=== PATIENT | female | born 1985 | race Caucasian/White ===

== ENCOUNTER → 2018-08-20 18:14 | Outpatient (CLI) | payer OTHER, SELFPAY ==
[2018-08-20 20:31] LABS: Chlamydia Trachomatis by PCR Negative (Negative); Neisserai gonorrhoeae by PCR Negative (Negative); Probe Check PASS; Sample Adequacy Control PASS; Specimen Processing Control PASS
== END ==
PROVIDERS: Family Provider Family Medicine; PCP Family Medicine; Referring Provider Obstetrics & Gynecology; Visit Provider Obstetrics & Gynecology
DX: Z11.3 Encounter for screening for infections with a predominantly sexual mode of transmission (principal)
CPT/HCPCS: 87491; 87591

== ENCOUNTER → 2018-12-10 18:45 | Outpatient (CLI) | payer OTHER, SELFPAY ==
[2018-12-14 13:13] LABS: HPV Reflexed? NOT INDICATED
== END ==
PROVIDERS: Family Provider Family Medicine; PCP Family Medicine; Referring Provider Obstetrics & Gynecology; Visit Provider Obstetrics & Gynecology
DX: Z12.4 Encounter for screening for malignant neoplasm of cervix (principal)
CPT/HCPCS: 88175; G0145

== ENCOUNTER → 2019-08-01 | Outpatient (CLI) | payer OTHER, SELFPAY ==
[2019-08-01 17:53] LABS: Chlamydia Trachomatis by PCR Negative (Negative); Neisserai gonorrhoeae by PCR Negative (Negative); Probe Check PASS; Sample Adequacy Control PASS; Specimen Processing Control PASS
== END | disposition home or self-care (01) ==
LOC: LABSPEC 15:57
PROVIDERS: Visit Provider Obstetrics & Gynecology
DX: Z11.3 Encounter for screening for infections with a predominantly sexual mode of transmission (principal)
CPT/HCPCS: 87491; 87591

== ENCOUNTER → 2019-08-06 | Outpatient (CLI) | payer OTHER, SELFPAY ==
--- NOTE | 2019-08-06 14:06 | RAD_ITS ---
STUDY: X-RAY - RIGHT KNEE REASON FOR EXAM: Female, 34 years old. Right knee pain. TECHNIQUE: 4 view(s) of the knee. COMPARISON: None. FINDINGS: Normal visualized distal femur. Normal visualized proximal tibia and fibula. Normal proximal tibiofibular articulation. There is no demonstrated fracture. Normal medial femorotibial compartment. Normal lateral femorotibial compartment. Normal patellofemoral articulation. There is no demonstrated joint effusion. The soft tissue structures are unremarkable. RAD/Knee 4 or More Views IMPRESSION: Normal x-ray examination of the knee. Electronically Signed: Jostin Bolden MD at 16:58 EDT , Service support ,
== END | disposition home or self-care (01) ==
LOC: RAD.FUTURE 13:57
PROVIDERS: Referring Provider Family Medicine; Visit Provider Family Medicine
DX: M25.561 Pain in right knee (principal)
CPT/HCPCS: 73564

== ENCOUNTER → 2020-01-14 17:58 | Outpatient (CLI) | payer OTHER, SELFPAY ==
[2019-08-12 10:41] VITALS: BMI 20.8
[2020-01-19 20:07] LABS: HPV Genotype 16, Aptima Negative (Negative)
[2020-01-19 21:32] LABS: HPV APTIMA, High Risk Positive (Negative); HPV Genotype 18,45 Aptima Negative (Negative)
== END ==
PROVIDERS: Referring Provider Obstetrics & Gynecology; Visit Provider Obstetrics & Gynecology
DX: Z12.4 Encounter for screening for malignant neoplasm of cervix (principal)
CPT/HCPCS: 87624; 88175; G0145

== ENCOUNTER → 2020-01-26 15:46 | Outpatient (CLI) | payer OTHER, SELFPAY ==
[2019-08-12 10:41] VITALS: BMI 20.8
--- NOTE | 2020-01-26 | IMM_PTH ---
PATIENT: HI PACK LOC: [facility] U#:[id number] AGE/SX: 40/F ROOM: RE01/26/[address]: Dr. Sandy Jurado MD : 1985 BED: DIS: SPEC #: [id number] RECD: 01/28/20 14:50 STATUS: CAIT REQ #: [id number] HOLDEN: 01/26/20 00:[address]: Sandy Hernandez DEPT: IMMUNOHISTOCHEMISTRY RECD BY: Karo Royal ENTERED: 01/28/20 14:50 SP TYPE: IMMUNO OTHR DR: No Primary Care Phys Tissues: A - Uterine cervix, NOS Procedures: p16 (initial) KI-67 (add) PHYSICIAN & INSTITUTION [place] [id number] SPECIMEN INFORMATION: Tissue Source: A - Biopsy at 10 o'clock Clinical Info: HPV positive Specimen Number: [id number] CPT code: 58417, 41639 METHODOLOGY: Deparaffinized sections of prefer/formalin-fixed tissue or PAP/DQ stained slides are incubated with monoclonal/polyclonal antibodies/oligonucleotide probes. Localization is made via biotin free immunoperoxidase method. Appropriate controls are performed and reacted as expected. Results on target cell population are indicated in the following table: RESULTS: ANTIBODY / CLONE RESULT Block A P16 (E6H4) positive, focal weak and patchy Ki-67 (30-9) negative These tests were developed and their performance characteristics determined by [facility]. They may not have been cleared or approved by the U.S. Food and Drug Administration. The FDA has determined that such clearance or approval is not necessary. The above immunohistochemical/dualISH markers are ordered and reviewed by the Pathologist. INTERPRETATION: A. Cervix at 10 o'clock, biopsy: Focal changes suspicious for HPV cytopathic effects. SJ:rachelle 01/29/20
--- NOTE | 2020-01-26 14:45 | CER_PTH ---
PAT[facility]: HI PACK [facility] U[id number] AGE/SX: 40/F ROOM: RE01/26/[address]: Dr. Sandy Jurado MD : 1985 BED: DIS: SPEC #: [id number] RECD: 01/26/20 17:05 STATUS: CAIT HAMLIN #: [id number] HOLDEN: 01/26/20 14:[address]: Sandy Hernandez DEPT: SURGICAL PATHOLOGY RECD BY: Hector Erickson ENTERED: 01/27/20 07:50 SP TYPE: CERV OTHR DR: No Primary Care Phys Tissues: Uterine cervix, NOS Procedures: Surgery Specimen Level IV HEADER OPERATION: Colposcopy PRE-OP DIAGNOSIS: Pap within normal limits; HPV positive 01/14/20; R87.810 TISSUE SUBMITTED: A - Biopsy at 10 o'clock, B - [facility] MICROSCOPIC DIAGNOSIS A. Cervix, 10 o'clock, biopsy: Focal changes suspicious for HPV cytopathic effects. Acute and chronic inflammation and squamous metaplasia. See comment. B. ECC: Fragments of benign endocervical epithelium, blood and mucous, negative for dysplasia. TOLU:rachelle 01/28/20 COMMENT A. Immunohistochemistry ([id number]) for surrogate HPV marker (p16) supports the above diagnosis. This case has been reviewed in consultation with Dr. Power who concurs with the above diagnosis. MICROSCOPIC DESCRIPTION Slides are reviewed. GROSS DESCRIPTION A - Received in fixative is one container labeled with the patient's name and designated 10 o'clock biopsy. The specimen consists of one irregular fragment of light cochran soft tissue that measures 0.4 x 0.4 x 0.1 cm. The specimen is totally submitted in one cassette. B - Received in fixative is one container labeled with the patient's name and designated ECC. The specimen consists of a scant amount of soft tissue. The specimen is totally submitted for cell block preparation. / TOLU:rachelle 01/27/20 TC: CPT: 47080 x2
== END ==
PROVIDERS: Visit Provider Obstetrics & Gynecology
DX: R87.810 Cervical high risk human papillomavirus (HPV) DNA test positive (principal)
CPT/HCPCS: 88305; 88341; 88342

== ENCOUNTER → 2020-07-20 16:42 | Outpatient (CLI) | payer OTHER, SELFPAY ==
--- NOTE | 2020-07-20 | ECC_PTH ---
PATIENT: HI PACK LOC: [facility] U#:[id number] AGE/SX: 40/F ROOM: RE07/20/[address]: Dr. Lakia Smith MD : 1985 BED: DIS: SPEC #: [id number] RECD: 07/20/20 16:14 STATUS: CAIT YAKELIN #: [id number] HOLDEN: 07/20/20 00:[address]: Lakia Smith DEPT: SURGICAL PATHOLOGY RECD BY: Daija Doyle ENTERED: 07/21/20 13:19 SP TYPE: ECC LUDY DR: Dr. Christal Gutierrez, DO Tissues: Endocervical Procedures: Surgery Specimen Level IV HEADER OPERATION: Colposcopy PRE-OP DIAGNOSIS: HPV positive TISSUE SUBMITTED: ECC MICROSCOPIC DIAGNOSIS ECC: Fragments of benign endocervical epithelium, negative for dysplasia. SJ:rachelle 07/22/20 MICROSCOPIC DESCRIPTION Slides are reviewed. GROSS DESCRIPTION Received in fixative is one container labeled with the patient's name and designated ECC. The specimen consists of a scant amount of soft tissue. The specimen is totally submitted for cell block preparation. / AM:rachelle 07/21/20 TC:4 CPT: 55064
[2020-07-20 09:32] VITALS: BMI 22.0
== END ==
PROVIDERS: PCP Family Medicine; Referring Provider Obstetrics & Gynecology; Visit Provider Obstetrics & Gynecology
DX: A63.0 Anogenital (venereal) warts (principal)
CPT/HCPCS: 88305

== ENCOUNTER → 2020-09-27 15:48 | Outpatient (CLI) | payer OTHER, SELFPAY ==
[2020-07-20 09:32] VITALS: BMI 22.0
--- NOTE | 2020-09-27 16:07 | RAD_ITS ---
ACR Level 3 findings have been noted. An addendum which confirms receipt of the report will follow. HISTORY: Pain proximal end of great toe after tripping while running this past weekend. COMPARISON: None FINDINGS: # of images incl. paperwork: 3 XR Toes Min 2 Views: Right BONE AND JOINTS: Suspect subtle fracture at the lateral base distal phalanx great toe There is a foci of sclerosis seen within the distal one third of the distal phalanx great toe. This may be secondary to prior trauma. SOFT TISSUES: Unremarkable. No radiopaque foreign body. RAD/Toe(s) Min 2 Views IMPRESSION: Subtle fracture lateral base distal phalanx right great toe. Sclerosis seen at the distal one third of the great toe. This may be secondary to prior trauma this may also be secondary to bone island however this appears more compatible with focal cortical thinning seen on the lateral view. at 2331 Reported and signed by: Sondra Joy DO Electronically Signed: Sondra Joy DO at 23:30 EST Tel , Service support ,
== END ==
PROVIDERS: PCP Family Medicine; Referring Provider Family Medicine; Visit Provider Family Medicine
DX: M79.674 Pain in right toe(s) (principal)
CPT/HCPCS: 73660

== ENCOUNTER → 2021-08-03 11:08 | Outpatient (CLI) | payer OTHER, SELFPAY ==
[2021-08-08 21:48] LABS: HPV APTIMA, High Risk Positive (Negative)
== END ==
PROVIDERS: PCP Family Medicine; Referring Provider Obstetrics & Gynecology; Visit Provider Obstetrics & Gynecology
DX: Z12.4 Encounter for screening for malignant neoplasm of cervix (principal)
CPT/HCPCS: 87624; 88175; G0145

== ENCOUNTER → 2021-08-18 13:26 | Outpatient (CLI) | payer OTHER, SELFPAY ==
--- NOTE | 2021-08-18 | IMM_PTH ---
PATIENT: HI PACK LOC: [facility] U#:[id number] AGE/SX: 40/F ROOM: RE08/18/[address]: Dr. Lakia Smith MD : 1985 BED: DIS: SPEC #: [id number] RECD: 08/22/21 10:32 STATUS: CAIT REMiki #: [id number] HOLDEN: 08/18/21 00:[address]: Lakia Smith DEPT: IMMUNOHISTOCHEMISTRY RECD BY: Karo Royal ENTERED: 08/22/21 10:33 SP TYPE: IMMUNO OTHR DR: Dr. Christal Gutierrez, DO Tissues: B - Uterine cervix, NOS Procedures: p16 (initial) KI-67 (add) PHYSICIAN & INSTITUTION [place] [address] SPECIMEN INFORMATION: Tissue Source: B ? Cervix at 2 and 7 o?clock Clinical Info: JAX, HPV positive Specimen Number: [id number] CPT code: 17676, 48190 METHODOLOGY: Deparaffinized sections of prefer/formalin-fixed tissue or PAP/DQ stained slides are incubated with monoclonal/polyclonal antibodies/oligonucleotide probes. Localization is made via biotin free immunoperoxidase method. Appropriate controls are performed and reacted as expected. Results on target cell population are indicated in the following table: RESULTS: ANTIBODY / CLONE RESULT Block B P16 (E6H4) positive, focal block staining Ki-67 (30-9) positive, moderate These tests were developed and their performance characteristics determined by [facility]. They may not have been cleared or approved by the U.S. Food and Drug Administration. The FDA has determined that such clearance or approval is not necessary. The above immunohistochemical/dualISH markers are ordered and reviewed by the Pathologist. INTERPRETATION: B. Cervix, 2 o?clock and 7 o?clock, biopsy: Mild and focal moderate squamous dysplasia. TOLU:rachelle 08/23/2021 Case has been reviewed in consultation with Dr. Power who concurs with the above diagnosis. IDC:AM
--- NOTE | 2021-08-18 11:00 | CER_PTH ---
PATIENT: HI PACK LOC: [facility] U#:[id number] AGE/SX: 40/F ROOM: RE08/18/[address]: Dr. Lakia Smith MD : 1985 BED: DIS: SPEC #: [id number] RECD: 08/18/21 13:20 STATUS: CAIT YAKELIN #: [id number] HOLDEN: 08/18/21 11:[address]: Lakia Smith DEPT: SURGICAL PATHOLOGY RECD BY: Destiny Kohler ENTERED: 08/19/21 11:54 SP TYPE: CERV OTHR DR: Dr. Christal Gutierrez, DO Tissues: A - Endocervical B - Uterine cervix, NOS Procedures: Surgery Specimen Level IV HEADER OPERATION: Colposcopy PRE-OP DIAGNOSIS: LGSIL HPV positive TISSUE SUBMITTED: A ? ECC, B ? 2 o?clock, 7 o?clock MICROSCOPIC DIAGNOSIS A. ECC: Scant fragments of benign endocervical epithelium, negative for dysplasia. B. Cervix, 2 o?clock and 7 o?clock, biopsy: Mild and focal moderate squamous dysplasia with HPV changes (HGSIL and GISELE I-II). Chronic inflammation. See comment. SJ:rachelle 08/22/2021 COMMENT B. Immunohistochemistry ([id number]) for surrogate HPV marker (p16) supports the above diagnosis. Please make reference to previous specimen ([id number]) cervix, 10 o?clock, biopsy with diagnosis of ?focal changes suspicious for HPV cytopathic effects.? Case has been reviewed in consultation with Dr. Power who concurs with the above diagnosis. IDC:AM MICROSCOPIC DESCRIPTION Slides are reviewed. GROSS DESCRIPTION A - Received in fixative is one container labeled with the patient's name and designated ECC. The specimen consists of scant fragments of cochran soft mucoid tissue that in aggregate measure 0.5 x 0.1 x 0.1 cm. The specimen is totally submitted in one cassette. B - Received in fixative is one container labeled with the patient's name and designated 2 o'clock, 7 o'clock. The specimen consists of two irregular fragments of cochran soft tissue that in aggregate measure 0.6 x 0.3 x 0.1 cm. The specimen is totally submitted in one cassette. / TOLU:rachelle 08/19/21 TC:5 CPT: 76420 x2
== END ==
PROVIDERS: PCP Family Medicine; Referring Provider Obstetrics & Gynecology; Visit Provider Obstetrics & Gynecology
DX: R87.622 Low grade squamous intraepithelial lesion on cytologic smear of vagina (LGSIL) (principal)
CPT/HCPCS: 88305; 88341; 88342

== ENCOUNTER 2021-11-01 12:25 | Day surgery (SDC) | payer OTHER, SELFPAY ==
[2021-11-01] VITALS (7 sets, daily range): BP systolic 89–115; BP diastolic 56–71; PULSE 45–59; RESP 14–16; TEMP 36.2–36.8; O2SAT 96–100; BMI 22.1
--- NOTE | 2021-11-01 | CER_PTH ---
PATIENT: HI PACK LOC: [facility] [place] U#:[id number] AGE/SX: 36/F ROOM: RE11/01/[address]: Dr. Zehra Hameed MD : 1985 BED: DIS: 11/01/2021 SPEC #: [id number] RECD: 11/01/21 15:53 STATUS: CAIT [place] #: [id number] HOLDEN: 11/01/21 00:[address]: Zehra Hameed DEPT: SURGICAL PATHOLOGY RECD BY: Marcelo Boyd ENTERED: 11/02/21 08:51 SP TYPE: CERV OTHR DR: Dr. Christal Gutierrez, DO Tissues: A - UTERINE CERVIX LEEP B - Endocervical Procedures: Surgery Specimen Level IV Surgery Specimen Level V HEADER OPERATION: LEEP cone PRE-OP DIAGNOSIS: GISELE II TISSUE SUBMITTED: A ? LEEAditi, B - ECC MICROSCOPIC DIAGNOSIS A. Cervix, LEEP conization: Focal mild squamous dysplasia. Squamous metaplasia and chronic inflammation. Margins of excision are free of dysplasia. B. Endocervix, curettings: Rare strips of benign superficial endocervix. No evidence of dysplasia. AM:rachelle 11/03/2021 COMMENT Reference is made to the patient's previous cervical biopsy ([id number]) in which mild and focal moderate squamous dysplasia with HPV change was identified. MICROSCOPIC DESCRIPTION Slides are reviewed. GROSS DESCRIPTION A - Received in fixative is one container labeled with the patient's name and designated LEEP. The specimen consists of four irregular fragments of glistening mucosa ranging in size from 1 to 2 cm. No mass lesions are identified. The fragments are inked, serially sectioned and totally submitted in four cassettes. B - Received in fixative is one container labeled with the patient's name and designated ECC. The specimen consists of multiple minute fragments of cochran tissue that in aggregate measure 0.5 x 0.5 x <0.1 cm. The specimen is totally submitted in one cassette. / AM:rachelle 11/02/21 TC:3 CPT: 52997, 39969
[2021-11-01 12:53] LABS: Internal QC Validated? YES +Cl - CLEAR BKGD
[2021-11-01 12:56] LABS: Pregnancy, Urine Negative Negative
[2021-11-01 13:11] LABS: Absolute Lymphocyte Count 1.75 X10^3/uL (0.83-4.51); Absolute Neutrophil Count 2.8 X10^3/uL (2.0-7.7); Basophil# 0.02 X10^3/uL; Basophil% 0.4 % (0-1); Eosinophil# 0.05 X10^3/uL; Hematocrit 36.3 % (37-47); Hemoglobin 12.6 g/dL (12.0-15.0); Lymphocyte # 1.75 X10^3/ul (0.83-4.51); Lymphocyte % 34.4 % (19-41); Mean Corp Hgb Conc 34.7 g/dL (32-36); Mean Corpuscular Volume 92.1 fL (81-99); Mean Platelet Vol. 8.5 fl (6.2-12.0); Monocyte# 0.42 X10^3/uL; Monocyte% 8.3 % (0-10); NRBC Flagged by Analyzer 0 % (0-5); Neutrophil # 2.84 X10^3/uL (2.7-7.7); Neutrophil % 55.7 % (47-70); Platelet Count 224 K/mm3 (150-450); RBC Distribution Width CV 11.5 % (11.6-14.6); Red Blood Count 3.94 M/mm3 (4.2-5.4); White Blood Count 5.1 K/mm3 (4.4-11.0)
[2021-11-01] MEDS: Lactated Ringers 1,000 ML 15 ML IV (13:16)
--- NOTE | 2021-11-01 13:48 | OP.PCM_ITS ---
Problems Associated Problem List Diagnoses (1) GISELE II (cervical intraepithelial neoplasia II): Report of Operation Date of Procedure: 11/01/21 Pre-Operative Diagnosis: see problem list Post-Operative Diagnosis: same Surgery/Procedure Performed:: LEEP procedure Description of Surgical Findings:: grossly nl cervix clinical research physician: None Type of Anesthesia: General and Local Special Medications: monsels paste Specimen's removed: cervix ecc Drains: none Estimated Blood Loss (mL): 50 Fluids Replaced: crystalloid Description of Procedure: Paracervical block was placed with 1% lidocaine and using a loop electrode the outer part of the cervix was removed including the squamocolumnar junction. Endocervical curettings were taken and the base of the cervix was cauterized around the borders and the base to obtain excellent hemostasis. Monsel's paste was placed and patient was awoken and taken recovery in stable condition. iud strings still intact at the end of the procedure. ecc and cervix sent Grafts/Implants Used: none Complications none Admit VTE Documentation VTE Present on Admission: No VTE Mechan Device Prophylaxis: SCD's
--- NOTE | 2021-11-01 13:48 | HP.PCM_ITS ---
History and Physical Date of Admission: 11/01/21 [facility] [id number] [place] [address] [phone] OFFICE VISITDate of Service: 10/24/21 MR#:[id number]: HI PACKLisa #:[id number]:1985 Provider:Noelle Miles/Sex: 36/F Location:[facility] CAMPUStatus:Signed Intake Vital Signs 10/24/21 13:02 Height 5 ft 2 in Weight: 125 lb BMI 22.8 BP 102/60 Intake Visit Reasons: 2 wk LEEP Chief Complaint: pre op LEEP Presentation Team Member Required: No Is patient in pain?: No Allergies No Known Allergies Allergy (Verified 09/15/21 11:18) Medications levonorgestrel 20 mcg/24 hours (7 yrs) 52 mg intrauterine device 1 device INTRA UTERINE ONCE 08/12/19 [History Confirmed 10/24/21] multivitamin with minerals 1 tab PO DAILY 08/03/21 [History Confirmed 10/24/21] Is last menstrual period known: No Post menopausal: No Patient : No : [facility] History Abnormal Pap smear of cervix Cervical high risk HPV (human papillomavirus) test positive History of breast abscess Low grade squamous intraepithelial lesion (LGSIL) Surgical History (Updated 10/24/21 @ 13:02 by Nancy Mckeon) H/O LEEP Status post colposcopy Family History Other Cancer Social History Smoking Status: Never smoker alcohol intake: current alcohol intake frequency: holidays/special occasions only substance use type: does not use what type of physical activity do you participate in: running frequency: 3-4 times per week seatbelt use: always do you feel safe at home: Yes additional social history: -[facility] RN HPI 2 wk LEEP Details: HI PACK is a 36 year old who presents for preop visit for LEEP. GISELE II Female Reproductive History Menopausal Symptoms: No night sweats Pregancy History 2 Elective abortions Hx Para 2 Spontaneous abortions Hx # Term Pregnancies Ectopic pregnancies Hx # Pregnancies Multiple births # of living children Past Pregnancies Del. Date Name GA/Weeks Outcome Route Bth Weight Gen Labor Lgth Anesthesia Del Locatn Provider FOB Unknown -2008 Unknown Tamir-2004 ROS Const Constitutional: Denies fatigue, night sweats, weight gain or weight loss ENT ENT: Reports system reviewed and no additional complaints, except as documented Cardio Card: Denies chest pain Resp Resp: Denies cough or dyspnea GI GI: Reports as per HPI; Denies abdominal pain, constipation, nausea or vomiting : Denies nipple discharge, urinary frequency, urinary incontinence, urinary hesitancy, urinary urgency, vaginal discharge, vaginal dryness, vaginal odor or vaginal pruritus Musc Musc: Denies arthralgias, back pain or muscle weakness Skin Skin/Breast: Denies alopecia, change in hair, dry skin, breast mass, breast pain, breast skin changes or nipple discharge Neuro Neuro: Reports system reviewed and no additional complaints, except as documented Psych Psych: Reports system reviewed and no additional complaints, except as documented Endo Endo: Denies cold intolerance, excessive sweating, heat intolerance or polydipsia Jun/Lymph Hematologic/Lymphatic: Denies easy bleeding, Denies easy bruising and Denies lymphadenopathy Exam Const General: cooperative, healthy appearing, comfortable, no acute distress and well developed Orientation: alert [facility] Head: normal to inspection and normocephalic Ears: hearing grossly normal bilaterally and external ears normal Nose: external nose normal and nares normal Face and sinus: normal facial exam Neck Neck: normal visual inspection and no lymphadenopathy Thyroid: thyroid normal Chest Chest palpation & inspection: normal inspection of the chest Resp Effort & Inspection: normal respiratory effort Auscultation: clear to auscultation bilaterally Cardio Rate: regular rate Rhythm: regular rhythm Heart Sounds: S1 normal and S2 normal GI Inspection: normal to inspection and non-distended Palpation: soft and no hepatosplenomegaly Musc Other: gross motor intact no deficits, full bilateral strength Skin General: no rashes or lesions noted Neuro General: patient alert, patient awake, moves all extremities and no focal motor deficits Motor: muscle tone normal throughout Extrem General: normal to inspection and no pedal edema Psych Appearance: grossly normal Mental Status: mental status grossly normal Affect: normal affect Speech and Movement: speech and movement normal Coding Level of Care Code No Charge Diagnoses GISELE II (cervical intraepithelial neoplasia II) N87.1 Assessment and Plan Assessment and Plan (1) GISELE II (cervical intraepithelial neoplasia II): Status: Acute Comment: plan LEEP. has IUD present. Plan - Dr. Zehra Hameed MD: After discussing the patient's diagnosis and treatment plan options, patient wishes to proceed with surgical management. I have discussed with the patient the risks, benefits, and alternatives of the procedure which include but are not limited to risks of anesthesia, bleeding, infection, possible damage to bowel, bladder, or surrounding vasculature which could lead to additional surgery to evaluate any complications. Patient agrees to procedure and wishes to proceed. ACOG/uptodate references given for additional information regarding procedure. Plan Details Goals & Barriers: Goals Decrease pain Decrease spasm Barriers Long distance running UPDATE- I have seen the patient and performed any clinically relevant updates to the history and physical exam. Zehra Hameed MD
--- NOTE | 2021-11-01 13:49 | EX.PCM.DISCH ---
Discharge Instructions Procedure LEEP Diet Discharge Diet: No restrictions Activity Discharge Activity: Return to Normal Activity and May Not Drive (while taking narcotic pain medications.) May resume sexual activity in: 4 weeks (Nothing in the vagina for 4 weeks.) Dressing / Incision Call your doctor if you observe: Fever of 101 or Higher and Using more than 1 pad per hour Follow Up Care Please Follow Up With: Zehra Hameed MD When: Call [phone] for follow-up appointment. Test Results: Test results from this visit will be discussed in further detail at your follow-up appointment, if applicable. Discharge Plan Admission Primary Reason for Your Visit: leep Attending Provider: Zehra Hameed Primary Care Provider: Christal Gutierrez Discharge Orders/Prescriptions Prescriptions: No Action Mirena 20 mcg/24 hours (5 yrs) 52 mg intrauterine device 1 device intrauterine ONCE RF: 0 multivitamin with minerals [Hair,Skin and Nails] Tablet 1 tab PO DAILY RF: 0 Referrals / Follow Up: Christal Gutierrez DO [Primary Care Provider] - Disposition Disposition (needs filled in before D/C Order can be placed): Home, Self Care
[2021-11-01] MEDS: Lidocaine 1% (20 ml mdv) 20 ML Vial (14:25)
[2021-11-01] MEDS: FERRIC SUBSULFATE 8 GM SOLN (14:36)
== END 2021-11-01 16:40 | disposition home or self-care (01) ==
LOC: SDC 12:25 → AC 12:26
PROVIDERS: PCP Family Medicine; Referring Provider Obstetrics & Gynecology; Visit Provider Obstetrics & Gynecology
PROC: 0UBC7ZZ Excision of Cervix, Via Natural or Artificial Opening (ICD-10-PCS; CPT 57522; principal; 2021-11-01 13:55)
DX: N87.1 Moderate cervical dysplasia (principal); Z79.3 Long term (current) use of hormonal contraceptives; M99.02 Segmental and somatic dysfunction of thoracic region; M99.03 Segmental and somatic dysfunction of lumbar region; M99.05 Segmental and somatic dysfunction of pelvic region
CPT/HCPCS: 00940; 57522; 81025; 85025; 86850; 86900; 86901; 88305; 88307; J7120; J2405

== ENCOUNTER 2021-11-21 02:34 | Emergency (ER) | payer OTHER, SELFPAY ==
[2021-11-21 02:35] VITALS: BP 139/88; PULSE 78; RESP 16; TEMP 36.6; O2SAT 100; BMI 23.8
--- NOTE | 2021-11-21 02:52 | EDS_ITS ---
HPI HPI - Female History of Present Illness Chief Complaint: Vag Bleeding Detail of Chief Complaint: Vaginal bleeding since November 17 Informant: patient Pain Pain: Negative for Pelvic Pain, Vulvar Pain and Vaginal Pain Bleeding Issue: Positive for Vaginal bleeding and Passing clots; Negative for Passing tissue Onset: Days (Onset November 17) Context: Sudden Onset Timing: Continuous and Waxes and wanes Current Severity: Mild and - (Patient reports 1 pad per hour since last evening starting at 1800. She also reports passing golf ball sized to plum size clots) Vaginal Discharge Onset: Today Associated Symptoms Associated Symptoms: Negative for Dysuria, Frequency, Urgency and Hematuria Narrative Narrative: Patient is a 36-year-old woman with history of HPV, carcinoma in situ to, cervical intraepithelial neoplasm 2) who had an abnormal colposcopy that revealed moderate dysplasia from biopsy site at 7:00 and 2:00. She underwent LEEP procedure. She states she was doing well until bleeding started this past November 17. She contacted surgeon's office. She was instructed to call back on Sunday. She presents now because of abnormal bleeding of 1 pad per hour since last evening with passage of large clots. She gives up mild orthostatic symptoms. She does not believe she appears pale. She states she does not feel her normal self. She denies abdominal pain or pelvic pain. Prior similar symptoms: No Recent Illness/Hospitalization: Yes [facility] Medical History Abnormal Pap smear of cervix Alcohol use Cervical high risk HPV (human papillomavirus) test positive History of breast abscess Low grade squamous intraepithelial lesion (LGSIL) Non-smoker Wears contact lenses Home Medications levonorgestrel 20 mcg/24 hours (7 yrs) 52 mg intrauterine device 1 device INTRAUTERINE ONCE 08/12/19 [History Last Taken Unknown] multivitamin with minerals 1 tab PO DAILY 08/03/21 [History Last Taken Unknown] Allergy/AdvReac Type Severity Reaction Status Date / Time No Known Allergies Allergy Verified 11/21/21 02:37 Family History Other Cancer Surgical History H/O LEEP Status post colposcopy Social History (Updated 11/21/21 @ 02:[address] Jermaine Pearl MD) household members: children Smoking Status: Never smoker alcohol intake: current alcohol intake frequency: holidays/special occasions only substance use type: does not use what type of physical activity do you participate in: running frequency: 3-4 times per week seatbelt use: always do you feel safe at home: Yes additional social history: -[facility] RN ROS ROS ED Constitutional Constitutional ED: Denies fever(s) or subjective Cardiovascular Cardiovascular: Denies chest pain or palpitations Respiratory/Chest Respiratory/Chest: Denies cough, dyspnea or dyspnea on exertion Gastrointestinal Gastrointestinal: Denies abdominal pain, diarrhea, nausea or vomiting Genitourinary Genitourinary ED: Denies dysuria, hematuria or urinary frequency Musculoskeletal Musculoskeletal: Denies arthralgias or myalgias Integumentary Denies rash Neurologic Neurologic: Denies paresthesias or weakness Psychiatric Psychiatric: Reports other Details: Patient voices frustration. Endocrine Endocrinology: Denies polydipsia, polyphagia or polyuria Hematologic/Lymphatic Hematologic/Lymphatic: Denies easy bleeding or easy bruising EXAM Physical Exam Const Vital Signs: 11/21/21 02:35 11/21/21 03:00 Temperature 98 F Temperature Source Oral Pulse Rate 78 Pulse Rate [Lying] 58 L Pulse Rate [Sitting] 72 Pulse Rate [Standing] 79 Respiratory Rate 16 Blood Pressure 139/88 H Blood Pressure [Lying] 107/69 Blood Pressure [Sitting] 117/80 Blood Pressure [Standing] 117/93 H Blood Pressure Mean 105 Blood Pressure Mean [Lying] 81 Blood Pressure Mean [Sitting] 92 Blood Pressure Mean [Standing] 101 Pulse Ox 100 Positive well nourished and well developed General Appearance ED: well developed, NAD, pallor and other Patient appears possibly slightly pale compared to her normal skin complexion. HEENT Reports moist mucous membranes Negative for trauma or tenderness Eyes PERRL and EOMs intact bilaterally General Eye ED: Negative for pale conjunctiva or scleral icterus Neck no lymphadenopathy and supple Resp normal respiratory effort and clear to auscultation bilaterally Cardio regular rate and regular rhythm GI normal to inspection, nondistended, normoactive bowel sounds and soft to palpation no CVA tenderness Extremity normal to inspection General Extremety ED: Negative for edema General Extremity: Negative for edema Neuro oriented x3 and CN's II-XII intact bilaterally Sensorium / Orientation: alert Psych Psych Narrative: Apologetic. Slightly frustrated Skin no rashes or lesions noted and no wounds General Skin Exam: pallor; Negative for jaundice MDM MDM MDM Narrative Medical decision making narrative: Since she is bleeding and changing a pad every hour with significant size clot will obtain a H&H for baseline. Orthostatic vital signs. Once IV has been established and orthostatic vital si gns have been performed will perform pelvic exam to determine if there is a specific site of bleeding and to determine the amount of active bleeding. We will then contact surgeon, Dr. Zehra Hameed Spoke with Dr. Marcelo who is on-call for Dr. Zehra Hameed. She was informed the patient's history, recent surgical procedure and reason for presentation. Reviewed laboratory results and findings of pelvic exam. Plan Monsel solution to cervix and pack with Kerlix. She is to go to the office this morning. Patient was instructed to go to the office this morning after getting her children ready for school. She was instructed not to eat or drink anything in the event that this is not amenable to cauterization or suturing in the office and requires operative intervention. Monsel solution was applied to the cervix. The vagina was then packed with Kerlix. She tolerated the procedure. Plan is to discharge to home with [employer] follow-up later this morning. She feels comfortable driving herself home. Lab Data Labs: Laboratory Results - last 24 hr 11/21/21 02:53 WBC 6.0 RBC 3.70 L Hgb 11.8 L Hct 34.5 L MCV 93.2 MCH 31.9 MCHC 34.2 RDW Std Deviation 38.9 RDW Coeff of Kirstin 11.5 L Plt Count 285 MPV 8.4 Discharge Plan Triage Chief Complaint: Vag Bleeding ED Provider: Jermaine Pearl Dx/Rx/DC Orders Clinical Impression: Postoperative haemorrhage of vagina, Orthostatic dizziness Instructions: ED Post Op Wound Check, Bleeding Prescriptions: No Action Mirena 20 mcg/24 hours (5 yrs) 52 mg intrauterine device 1 device intrauterine ONCE RF: 0 multivitamin with minerals [Hair,Skin and Nails] Tablet 1 tab PO DAILY RF: 0 Primary Care Provider: Christal Gutierrez Referrals: Melly Jarrell DO [STAFF PHYSICIAN] - 11/21/21 Christal Gutierrez DO [Primary Care Provider] - Disposition Disposition: Home, Self Care
[2021-11-21 03:00] VITALS: BP 107/69; BP 117/80; BP 117/93; PULSE 58; PULSE 72; PULSE 79
[2021-11-21 03:04] LABS: Hematocrit 34.5 % (37-47); Hemoglobin 11.8 g/dL (12.0-15.0); Mean Corp Hgb Conc 34.2 g/dL (32-36); Mean Corpuscular Hgb 31.9 pg (27.0-32.0); Mean Corpuscular Volume 93.2 fL (81-99); Mean Platelet Vol. 8.4 fl (6.2-12.0); Platelet Count 285 K/mm3 (150-450); RBC Distribution Width CV 11.5 % (11.6-14.6); RBC Distribution Width SD 38.9 fl (35.1-43.9)
[2021-11-21] MEDS: FERRIC SUBSULFATE 8 GM SOLN TOPICAL (04:02)
== END 2021-11-21 04:04 | disposition home or self-care (01) ==
PROVIDERS: Emergency Provider Emergency Medicine; PCP Family Medicine; Visit Provider Emergency Medicine
DX: N99.821 Postprocedural hemorrhage of a genitourinary system organ or structure following other procedure (principal); R42 Dizziness and giddiness
CPT/HCPCS: 85027; 99284; A4216

== ENCOUNTER → 2022-03-31 | Outpatient (CLI) | payer OTHER, SELFPAY ==
--- NOTE | 2022-03-31 14:08 | US_ITS ---
STUDY: THYROID ULTRASOUND REASON FOR EXAM: Female, 36 years old. NODULE Technologist Notes Other, please give TIRADS with dictation please TECHNIQUE: Ultrasound evaluation of the thyroid was performed with real-time and static zuniga-scale imaging. COMPARISON: None. FINDINGS: RIGHT LOBE: The right lobe of the thyroid gland measures 5.1 x 1.6 cm. There is a homogeneous echotexture. There are 3 nodules. Nodule is 8 x 7 mm, 11 x 8 mm, and 15 x 15mm. The lesion is solid / cystic with regular margins and intra-nodular doppler flow. LEFT LOBE: The left lobe of the thyroid gland measures 4.6 x 1.7 cm. There is a homogeneous echotexture. There is a nodule. 20 x 11mm nodule . The lesion is solid with regular margins and intra-nodular doppler flow. ISTHMUS: The isthmus measures 1.8 mm. US/Thyroid IMPRESSION: There are RIGHT nodules. This nodule is mixed cystic and solid, hyperechoic or isoechoic, [id number], smoothly marginated and contains no echogenic foci. TI-RADS points: 2. TI-RADS category: TR2. This nodule is not suspicious and no FNA or follow-up is necessary. There are left nodules. This nodule is solid or almost completely solid, hyperechoic or isoechoic, [id number], smoothly marginated and contains no echogenic foci. TI-RADS points: 3. TI-RADS category: TR3. This nodule is mildly suspicious. Recommend follow-up thyroid ultrasounds at 1, 3 and 5 years. Electronically Signed: Timo Rice MD at 16:11 EDT ,
== END | disposition home or self-care (01) ==
LOC: OPUS 14:06
PROVIDERS: PCP Family Medicine; Referring Provider Family Medicine; Visit Provider Family Medicine
DX: E04.1 Nontoxic single thyroid nodule (principal)
CPT/HCPCS: 76536

== ENCOUNTER → 2022-09-20 | Outpatient (CLI) | payer OTHER, SELFPAY ==
--- NOTE | 2022-09-20 14:38 | US_ITS ---
STUDY: ULTRASOUND OF THE FEMALE PELVIS - COMPLETE REASON FOR EXAM: Female, 37 years old. IUD placement TECHNIQUE: Endovaginal. Transvaginal US was obtained to better visualized the ovaries. COMPARISON: None. FINDINGS: The uterus is anteverted and is in a midline position. The uterus measures 8.9 x 6.5 cm. Normal uterine cervix. The endometrium measures 3 mm in thickness, and is hyperechoic. There is no demonstrated endometrial mass. There is no demonstrated myometrial mass. I.U.D. - The patient does have an I.U.D. The right ovary is visualized. The right ovary measures 4.7 x 2 cm. There is no right ovarian cyst or ovarian mass. There is no visualized right adnexal mass or complex lesion. There is normal arterial and normal venous vascularity. The left ovary is visualized. The left ovary measures 2.8 x 3.2 cm. There is no left ovarian cyst or ovarian mass. There is no visualized left adnexal mass or complex lesion. There is normal arterial and normal venous vascularity. There is minimal fluid in the cul-de-sac. Unremarkable urinary bladder. US/Transvaginal Non- IMPRESSION: There is free fluid in the pelvis. This can be physiologic. Electronically Signed: Timo Rice MD at 20:59 EST ,
== END | disposition home or self-care (01) ==
LOC: US 14:36
PROVIDERS: PCP Family Medicine; Visit Provider Family Medicine
DX: R10.2 Pelvic and perineal pain (principal)
CPT/HCPCS: 76830

== ENCOUNTER → 2022-10-24 | Outpatient (CLI) | payer OTHER, SELFPAY ==
[2022-11-02 21:57] LABS: HPV APTIMA, High Risk Negative (Negative)
== END | disposition home or self-care (01) ==
LOC: LABSPEC 16:53
PROVIDERS: PCP Family Medicine; Visit Provider Obstetrics & Gynecology
DX: N87.1 Moderate cervical dysplasia (principal); B97.7 Papillomavirus as the cause of diseases classified elsewhere
CPT/HCPCS: 87624; 88175; G0145

== ENCOUNTER → 2023-04-11 | Outpatient (CLI) | payer OTHER, SELFPAY ==
--- NOTE | 2023-04-11 09:48 | US_ITS ---
STUDY: THYROID ULTRASOUND REASON FOR EXAM: Female, 37 years old. MULTINODULAR GOITER -- -- TIRADS please TECHNIQUE: Ultrasound evaluation of the thyroid was performed with real-time and static zuniga-scale imaging. COMPARISON: Comparison is made with prior examination dated March 31, 2022. FINDINGS: RIGHT LOBE: The right lobe of the thyroid gland is slightly enlarged measures 5.1 cm x 1.6 cm x 1.5 cm. There is a homogeneous echotexture. There is a 1.4 cm x 1.3 cm x 0.7 cm well-circumscribed hypoechoic solid nodule in the mid pole. Intranodular vascularity is seen. This is essentially unchanged. 2 subcentimeter hypoechoic nodules are seen in the superior pole. These are unchanged. There is also evidence of a 9 mm x 8 mm x 5 mm hypoechoic solid and cystic nodule in the lower pole. TI-RADS Category 2 LEFT LOBE: The left lobe of the thyroid gland measures 4.6 cm x 1.5 cm x 1.5 cm. There is a homogeneous echotexture. There is a 2.1 cm x 1.2 cm x 1 cm solid nodule in the upper pole. There is evidence of intranodular vascularity. This is unchanged. TI-RADS Category 3 ISTHMUS: The isthmus measures 1.4 mm. The regional lymph nodes are normal. US/Thyroid IMPRESSION: Essentially stable examination. Electronically Signed: Wade Noyola MD at 15:36 EDT ,
== END | disposition home or self-care (01) ==
LOC: US 09:47
PROVIDERS: PCP Family Medicine; Referring Provider Family Medicine; Visit Provider Family Medicine
DX: E04.2 Nontoxic multinodular goiter (principal)
CPT/HCPCS: 76536

== ENCOUNTER → 2023-09-11 | Outpatient (CLI) | payer OTHER, SELFPAY ==
--- NOTE | 2023-09-11 13:16 | US_ITS ---
STUDY: ULTRASOUND OF THE FEMALE PELVIS - COMPLETE REASON FOR EXAM: Female, 38 years old. PELVIC PAIN LMP: Unknown. TECHNIQUE: Transabdominal and Transvaginal TECHNICAL QUALITY: Adequate. COMPARISON: None. FINDINGS: The uterus is anteverted and is in a midline position. The uterus measures 8.8 cm x 5.3 cm x 4.7 cm. There is a Nabothian cyst of the cervix. The endometrium measures 3.9 mm in thickness, and is hyperechoic. There is no demonstrated endometrial mass. There is no demonstrated myometrial mass. I.U.D. - The patient does have an I.U.D. . The IUD is seen within the fundal portion of the uterus. The right ovary is visualized. The right ovary measures 4.4 cm x 3.9 cm x 1.8 cm. A dominant follicle is seen in the right ovary measuring 1.6 x 1.5 cm x 1.3 centimeter. There is no visualized right adnexal mass or complex lesion. There is normal arterial and normal venous vascularity. The left ovary is visualized. The left ovary measures 3 cm x 2.8 cm x 2.4 cm. Small follicles are seen. There is no visualized left adnexal mass or complex lesion. There is normal arterial and normal venous vascularity. There is no fluid in the cul-de-sac. The pre void volume of the bladder was 695 ml. US/Pelvic w/ Transvaginal IMPRESSION: IUD is seen within the endometrium. Dominant follicle in the right ovary measuring 1.6 x 1.5 cm x 1.3 cm. Electronically Signed: Wade Noyola MD at 15:18 EDT ,
== END | disposition home or self-care (01) ==
PROVIDERS: PCP Family Medicine; Referring Provider Family Medicine; Visit Provider Family Medicine
DX: R10.2 Pelvic and perineal pain (principal)
CPT/HCPCS: 76830; 76856

== ENCOUNTER → 2023-10-26 | Outpatient (CLI) | payer OTHER, SELFPAY ==
[2023-11-01 22:06] LABS: HPV APTIMA, High Risk Negative (Negative)
== END | disposition home or self-care (01) ==
PROVIDERS: PCP Family Medicine; Referring Provider Obstetrics & Gynecology; Visit Provider Obstetrics & Gynecology
DX: Z12.4 Encounter for screening for malignant neoplasm of cervix (principal)
CPT/HCPCS: 87624; 88175; G0145

== ENCOUNTER → 2024-02-06 | Outpatient (CLI) | payer OTHER, SELFPAY ==
[2024-02-06 08:22] LABS: Absolute Lymphocyte Count 1.49 X10^3/uL (0.83-4.51); Absolute Neutrophil Count 3.8 X10^3/uL (2.0-7.7); Basophil# 0.03 X10^3/uL; Basophil% 0.5 % (0-1); Eosinophil# 0.12 X10^3/uL; Eosinophils% 2.1 % (0-5); Hematocrit 38.8 % (37-47); Hemoglobin 13.3 g/dL (12.0-15.0); Lymphocyte # 1.49 X10^3/ul (0.83-4.51); Lymphocyte % 25.5 % (19-41); Mean Corp Hgb Conc 34.3 g/dL (32-36); Mean Corpuscular Hgb 32.2 pg (27.0-32.0); Mean Corpuscular Volume 93.9 fL (81-99); Mean Platelet Vol. 8.7 fl (6.2-12.0); Monocyte# 0.38 X10^3/uL; Monocyte% 6.5 % (0-10); NRBC Flagged by Analyzer 0 % (0-5); Neutrophil # 3.82 X10^3/uL (2.7-7.7); Neutrophil % 65.2 % (47-70); Platelet Count 244 K/mm3 (150-450); RBC Distribution Width CV 11.6 % (11.6-14.6); RBC Distribution Width SD 39.5 fl (35.1-43.9); Red Blood Count 4.13 M/mm3 (4.2-5.4); White Blood Count 5.9 K/mm3 (4.4-11.0)
[2024-02-06 09:14] LABS: ALB/GLOB Ratio 1.4 RATIO (0.9-2.4); AST(SGOT) 20 U/L (15-37); Alanine Aminotransfer ALT/SGPT 26 U/L (13-56); Albumin, Serum 3.9 g/dL (3.2-5.0); Alkaline Phosphatase 46 U/L (45-117); Anion Gap 4 (5-15); BUN 22 mg/dL (7-18); BUN/Creat Ratio 33.7 RATIO (10-20); Calcium,Total 8.4 mg/dL (8.5-10.1); Chloride 106 mmol/L (98-107); Cholesterol 159 mg/dL (200); Creatinine, Serum 0.65 mg/dL (0.55-1.02); EST Glomerular Filtration Rate 108 mL/min (>60); Est Glom Filt Rate - Afr Amer 131 mL/min (>60); Globulin 2.8 g/dL (2.2-4.2); Glucose 92 mg/dL (74-106); High Density Lipoprotein 69 mg/dL; Potassium 3.8 mmol/L (3.5-5.1); Protein, Total 6.7 g/dL (6.4-8.2); Sodium Level 138 mmol/L (136-145); Triglycerides 66 mg/dL; Very Low Density Lipoprotein 13 mg/dL (5-40)
== END | disposition home or self-care (01) ==
LOC: LAB 07:47
PROVIDERS: PCP Family Medicine; Visit Provider Family Medicine
DX: Z00.00 Encounter for general adult medical examination without abnormal findings (principal)
CPT/HCPCS: 36415; 80053; 80061; 85025

== ENCOUNTER → 2024-06-18 | Outpatient (CLI) | payer OTHER, SELFPAY ==
--- NOTE | 2024-06-18 11:25 | RAD_ITS ---
STUDY: X-RAY CHEST REASON FOR EXAM: Female, 38 years old. Cough. TECHNIQUE: Frontal and lateral views of the chest. COMPARISON: None. FINDINGS: Mild hyperinflation. There is no demonstrated pleural abnormality. Normal size heart. Normal mediastinum and lizabeth. Normal visualized pulmonary arteries. Normal visualized aortic arch and descending thoracic aorta. Normal visualized thoracic spine. Normal visualized ribs, clavicles, and shoulders. No abnormality of the visualized soft tissue structures of the upper abdomen. RAD/Chest PA and Lateral IMPRESSION: Hyperinflation with no acute finding. Electronically Signed: Zion King MD at 15:40 EDT ,
== END | disposition home or self-care (01) ==
LOC: RAD 11:22
PROVIDERS: PCP Family Medicine; Referring Provider Emergency Medicine; Visit Provider Emergency Medicine
DX: R05.9 Cough, unspecified (principal)
CPT/HCPCS: 71046

== ENCOUNTER → 2024-09-01 | Outpatient (CLI) | payer OTHER, SELFPAY ==
[2024-09-08 10:08] LABS: HPV APTIMA, High Risk Negative (Negative)
== END | disposition home or self-care (01) ==
LOC: LABSPEC 16:34
PROVIDERS: PCP Family Medicine; Referring Provider Obstetrics & Gynecology; Visit Provider Obstetrics & Gynecology
DX: Z12.4 Encounter for screening for malignant neoplasm of cervix (principal)
CPT/HCPCS: 87624; 88175; G0145

== ENCOUNTER → 2025-01-08 | Outpatient (CLI) | payer OTHER, SELFPAY ==
[2025-01-08 07:45] LABS: Absolute Neutrophil Count 2.5 X10^3/uL (2.0-7.7); Basophil# 0.03 X10^3/uL; Basophil% 0.7 % (0-1); Eosinophil# 0.12 X10^3/uL; Eosinophils% 2.6 % (0-5); Hematocrit 37.3 % (37-47); Hemoglobin 12.3 g/dL (12.0-15.0); Lymphocyte % 32.6 % (19-41); Mean Corpuscular Hgb 30.4 pg (27.0-32.0); Mean Corpuscular Volume 92.3 fL (81-99); Mean Platelet Vol. 8.8 fl (6.2-12.0); Monocyte% 8.7 % (0-10); NRBC Flagged by Analyzer 0 % (0-5); Neutrophil # 2.54 X10^3/uL (2.7-7.7); Neutrophil % 55.2 % (47-70); Platelet Count 300 K/mm3 (150-450); RBC Distribution Width SD 40.4 fl (35.1-43.9); Red Blood Count 4.04 M/mm3 (4.2-5.4); White Blood Count 4.6 K/mm3 (4.4-11.0)
[2025-01-08 08:34] LABS: ALB/GLOB Ratio 1.9 RATIO (0.9-2.4); AST(SGOT) 26 U/L (<=31); Alanine Aminotransfer ALT/SGPT 13 U/L (<=34); Alkaline Phosphatase 37 U/L (35-104); Anion Gap 9 (5-15); BUN 15 mg/dL (4-19); BUN/Creat Ratio 21.3 RATIO (10-20); Calcium 8.4 mg/dL (7.6-11.0); Carbon Dioxide 24.4 mmol/L (22.0-29.0); Chloride 104 mmol/L (96-108); Cholesterol 144 mg/dL (<=200); Creatinine, Serum 0.7 mg/dL (0.6-1.0); EST Glomerular Filtration Rate 114 (>60); Globulin 2.1 g/dL (2.2-4.2); Glucose 90 mg/dL (70-99); High Density Lipoprotein 69 mg/dL; Low Density Lipoprotein Calc. 55 mg/dL; Protein, Total 6.1 g/dL (5.9-8.4); Sodium Level 137 mmol/L (133-145); Triglycerides 104 mg/dL; Very Low Density Lipoprotein 21 mg/dL (5-40)
[2025-01-13 09:08] LABS: CMV Acute Antibody IgM 55.6 AU/mL (0.0-29.9); CMV by PCR Negative (Negative)
== END | disposition home or self-care (01) ==
PROVIDERS: PCP Family Medicine; Referring Provider Family Medicine; Visit Provider Family Medicine
DX: Z00.00 Encounter for general adult medical examination without abnormal findings (principal)
CPT/HCPCS: 36415; 80053; 80061; 85025; 86644; 86645; 87496

== ENCOUNTER → 2025-03-12 | Outpatient (CLI) | payer OTHER, SELFPAY ==
[2025-03-12 19:08] LABS: HIV Nonreactive (Nonreactive); Hepatitis B Surface Antigen Nonreactive (Nonreactive); Hepatitis C Antibody Nonreactive (Nonreactive); Syphilis Antibodies Nonreactive (Nonreactive)
== END | disposition home or self-care (01) ==
PROVIDERS: PCP Family Medicine
DX: Z11.3 Encounter for screening for infections with a predominantly sexual mode of transmission (principal)
CPT/HCPCS: 36415; 86703; 86780; 86803; 87340

== ENCOUNTER → 2025-04-30 | Outpatient (CLI) | payer OTHER, SELFPAY ==
[2025-04-30 16:07] LABS: Thyroid Stim Hormone (TSH) 0.587 uIU/mL (0.300-4.200)
== END | disposition home or self-care (01) ==
LOC: MTLAB 12:48
PROVIDERS: PCP Family Medicine
DX: Z30.9 Encounter for contraceptive management, unspecified (principal)
CPT/HCPCS: 36415; 84443

== ENCOUNTER → 2025-05-05 | Outpatient (CLI) | payer OTHER, SELFPAY ==
[2025-05-05 18:28] LABS: Ferritin 31 ng/mL (22-378); Vitamin B12 365 pg/mL (180-914); Vitamin D,25 Hydroxy 59.4 ng/mL (30-100)
== END | disposition home or self-care (01) ==
LOC: MTLAB 15:18
PROVIDERS: PCP Family Medicine; Referring Provider Family Medicine; Visit Provider Family Medicine
DX: E55.9 Vitamin D deficiency, unspecified (principal); E53.8 Deficiency of other specified B group vitamins; D50.9 Iron deficiency anemia, unspecified
CPT/HCPCS: 36415; 82306; 82607; 82728